=== PATIENT | male | born 2005 | race Caucasian/White ===

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

== ENCOUNTER → 2024-01-11 | Outpatient (REF) | payer OTHER | LOC: M LAB REF 13:20 | PROVIDERS: ATTEND Specialist | DX: R06.2 Wheezing (principal) ==